=== PATIENT | male | born 1980 | race Caucasian/White ===

== ENCOUNTER 2020-03-28 16:08 | Outpatient (CLI) | payer OTHER, BC ==
--- NOTE | 2020-03-28 16:36 | XRAY Report ---
PROCEDURE: Lumbar Spine 2 View INDICATIONS: STRAIN OF MUSCLE, FASCIA AND TENDON OF LOWER BACK TECHNIQUE: 3 views of the lumbar spine were acquired. COMPARISON: None. FINDINGS: Bones: 5 [id number] vertebrae are present. Minimal levocurvature, possibly positional. Mild low er lumbar degenerative disc disease. Lower lumbar facet arthropathy. No vertebral body compression fr actures. No suspicious bony lesions. Soft tissues: Overlying bowel gas pattern is normal. No suspicious soft tissue calcifications. IMPRESSION: Degenerative change. No acute bony abnormality of the lumbar spine. Reviewed by: Scar Villalba MD on 03/28/2020 4:35 PM PST Approved by: Scar Villalba MD on 03/28/2020 4:35 PM PST Station ID: [id number]
--- NOTE | 2020-03-28 16:37 | XRAY Report ---
PROCEDURE: Hand 3 View RT INDICATIONS: CONTUSION OF R HAND TECHNIQUE: 3 views of the hand(s) acquired. COMPARISON: None FINDINGS: Bones: No fractures or dislocations. No suspicious bony lesions. Soft tissues: No suspicious soft tissue calcifications. IMPRESSION: No evidence acute bony abnormality of the right hand. Reviewed by: Scar Villalba MD on 03/28/2020 4:35 PM [facility] Approved by: Scar Villalba MD on 03/28/2020 4:35 PM [facility] Station ID: [id number]
== END 2020-03-28 23:59 | disposition home or self-care (01) ==
LOC: DI.N 16:08
PROVIDERS: ATTEND Family Medicine
DX: M47.816 Spondylosis without myelopathy or radiculopathy, lumbar region (principal); M51.36 Other intervertebral disc degeneration, lumbar region; S60.221A Contusion of right hand, initial encounter

== ENCOUNTER 2021-09-01 13:47 | Emergency (ER) | payer OTHER ==
[2021-09-01] MEDS ORDERED: DEXAMETHASONE 10 MG/ML VIAL IVP STA (14:48)
[2021-09-01] MEDS ORDERED: diazePAM INJ 5 MG/ML SYRINGE IVP STA (14:48)
[2021-09-01] MEDS ORDERED: HYDROmorphone 1 MG/ML CARPUJECT IVP STA (14:48)
[2021-09-01] MEDS ORDERED: KETOROLAC 30 MG/ML VIAL IVP STA (14:48)
--- NOTE | 2021-09-01 14:49 | ED Physician Documentation ---
PD HPI BACK PAIN - Stated complaint Stated Complaint: BACK PX - Chief complaint Chief Complaint: Back Pain - History obtained from History obtained from: Patient - History of Present Illness Timing - onset: How many weeks ago (1) Timing - duration: Weeks (1) Timing - details: Gradual onset Pain level max: 8 Pain level now: 6 Location: Mid, Lower, Right Quality: Pain, Spasm, Similar to prior episodes Associated symptoms: No: Fever, Weakness, Numbness, Incontinent of urine, Unable to urinate, Hematuria, Incontinent of stool Improves with: Rest Worsened by: Movement Contributing factors: No: Anticoagulated, Cancer, IVDA - Additional information Additional information: Patient is a 41-year-old male who presents to the emergency department complaining of back pain. He states this has been ongoing for the past week. He originally injured it while twisting about a week ago. He complains of pain to the lumbar spine, left side, radiates to the left leg. No loss of bowel or bladder control. Has seen his chiropractor x2 but has not helped. Worse with movement and bending. Better with remaining still. Complains of increased spasm today. Review of Systems Constitutional: denies: Fever Cardiac: denies: Chest pain / pressure Respiratory: denies: Cough GI: denies: Nausea, Vomiting Skin: denies: Rash Musculoskeletal: denies: Neck pain, Back pain Neurologic: denies: Headache PD PAST MEDICAL HISTORY - Past Medical History Past Medical History: No - Past Surgical History Past Surgical History: No - Present Medications Home Medications: Ambulatory Orders Medication Instructions Recorded Confirmed Meloxicam [Mobic] 7.5 mg PO BID PRN #20 tablet 09/01/21 Oxycodone HCl/Acetaminophen 1 - 2 each PO Q6H PRN #14 tablet 09/01/21 [Percocet 5-325 mg Tablet] methocarbamoL [Robaxin] 500 mg PO Q6H PRN #20 tablet 09/01/21 - Allergies Allergies/Adverse Reactions: Allergies Allergy/AdvReac Type Severity Reaction Status Date / Time No Known Drug Allergies Allergy Verified 09/01/21 13:57 - Living Situation Living Situation: reports: With family Living Arrangement: reports: At home - Social History Does the pt have substance abuse?: No PD ED PE NORMAL - Vitals Vital signs reviewed: Yes - General General: Alert and oriented X 3, No acute distress - HEENT HEENT: PERRL, Moist mucous membranes - Neck Neck: Supple, no meningeal sign - Cardiac Cardiac: RRR, Strong equal pulses - Respiratory Respiratory: No respiratory distress, Clear bilaterally - Abdomen Abdomen: Soft, Non tender, Non distended - Back Back: Other (Mild midline tenderness palpation L3-L4. Paraspinal spasm left greater than right.) - Derm Derm: Warm and dry - Extremities Extremities: No edema, No calf tenderness / cord - Neuro Neuro: Alert and oriented X 3, No motor deficit, No sensory deficit, Other (Normal bilateral lower extremity patellar and ankle jerk reflexes. Normal great toe extension bilaterally. no saddle anesthesia) - Psych Psych: Normal mood, Normal affect Results - Vitals Vitals: Vital Signs - 24 hr 09/01/21 09/01/21 13:54 16:42 Temperature 37.3 C Heart Rate 81 64 Respiratory 16 20 Rate Blood Pressure 145/92 H 133/79 H O2 Saturation 96 94 Oxygen O2 Source Room air - Rads (name of study) Lumbar spine x-ray Radiology: Final report received, EMP read contemporaneously, See rad report (No acute abnormality) PD MEDICAL DECISION MAKING - ED course Complexity details: reviewed results, re-evaluated patient, considered differential (No cauda equina, no spinal epidural abscess, no fracture, no aortic dissection or evidence of aneursym rupture), d/w patient ED course: Pain well controlled in the emergency department. Possible disc injury. We will have him follow-up with his doctor for further care. Potential MRI if fails to improve. No evidence of cauda equina, epidural abscess or fracture. Patient feels much better after pain medication here. Patient counseled regarding signs and symptoms for which I believe and urgent re-evaluation would be necessary. Patient with good understanding of and agreement to plan and is comfortable going home at this time This document was made in part using voice recognition software. While efforts are made to proofread this document, sound alike and grammatical errors may occur. Departure - Departure Disposition: 01 Home, Self Care Clinical Impression: Back spasm Condition: Good Instructions: ED Low Back Pain Injury, ED Spasm Back No Trauma Follow-Up: Felicia Pedersen PA-C [Primary Care Provider] - Within 1 week Prescriptions: Meloxicam [Mobic] 7.5 mg PO BID PRN #20 tablet PRN Reason: Pain Oxycodone HCl/Acetaminophen [Percocet 5-325 mg Tablet] 1 - 2 each PO Q6H PRN #14 tablet PRN Reason: pain methocarbamoL [Robaxin] 500 mg PO Q6H PRN #20 tablet PRN Reason: muscle spasm Comments: Continue gentle stretching at home. Please follow-up with your doctor for further care. Your prescriptions were sent to [facility] in [place]. Your x- rays do not show any acute abnormalities today. I am prescribing a short course of narcotic pain medication for you. These are potentially dangerous and addictive medications that should be used carefully. These medications may constipate you. Take an [id number]-tur-yhougpn stool softener (docusate) twice daily with plenty of water while taking these medications. If you go 24 hours without a bowel movement, take srwc-brk-nciigqx miralax, per package instructions. Do not drink or drive while taking these medications. If you received narcotic or sedating medications while in the emergency department, do not drive for 24 hours. Store this medication in a safe, secure place and out of reach of children. It is a violation of federal law to give or sell this medication to another person or to use in a manner other than prescribed. The ED will not refill narcotic prescriptions, including prescriptions lost or stolen. To dispose of unwanted medications: 1. [facility] at [address] in [place] has a medication drop box. They accept prescription medications (in pill form) Thursday through Thursday 9:00 a.m. to 5:00 p.m. 2. The [facility] [employer] accepts prescription medications (in pill form only) for disposal year round. Call for more information. 3. Contact the [facility] for the next [facility] sponsored prescription drug collection event. , [phone], or [phone]; Discharge Date/Time: 09/01/21 16:59
[2021-09-01] MEDS: HYDROmorphone 1 MG/ML CARPUJECT IM STA ×2 (14:54→14:55)
[2021-09-01] MEDS: DEXAMETHASONE 10 MG/ML VIAL IM STA ×2 (14:54→14:56)
[2021-09-01] MEDS: diazePAM INJ 5 MG/ML SYRINGE IM STA ×2 (14:54→14:56)
[2021-09-01] MEDS: KETOROLAC 30 MG/ML VIAL IM STA ×2 (14:54→14:56)
--- NOTE | 2021-09-01 15:58 | XRAY Report ---
PROCEDURE: Lumbar Spine 2 View INDICATIONS: fall, back pain x 1 week TECHNIQUE: 3 views of the lumbar spine were acquired. COMPARISON: None. FINDINGS: Bones: 5 [id number]-rlk-[id number] vertebrae are present. Minimal degenerative changes of the vertebral justin s. Mild disc space narrowing at L5-S1. There is normal bony alignment. No vertebral body compression fractures. No suspicious bony lesions. Soft tissues: Overlying bowel gas pattern is normal. No suspicious soft tissue calcifications. IMPRESSION: 1. No acute abnormality of the lumbar spine. 2. Minimal degenerative changes with mild disc space narrowing at L5-S1. Reviewed by: Guanaco Sandra on 09/01/2021 2:57 PM [facility] Approved by: Guanaco Sandra on 09/01/2021 2:57 PM [facility] Station ID: [id number]
[2021-09-01 16:42] VITALS: BP 133/79
[2021-09-01] MEDS ORDERED: oxyCODONE 5 MG TABLET PO STA (16:48)
== END 2021-09-01 16:59 | disposition home or self-care (01) ==
LOC: EDUNIT# → ED 13:47
DX: M62.830 Muscle spasm of back (principal)
CPT/HCPCS: 72100; 96374; 99284; 99285; A9270; J1170

== ENCOUNTER 2022-09-08 13:11 | Outpatient (CLI) | payer OTHER ==
[2022-09-08 14:26] VITALS: BP 136/90
--- NOTE | 2022-09-08 14:26 | SLEEP CARE CONSULTATION ---
Information from patient questionnaire entered by Rosas Ruelas. I have reviewed and concur with the information entered by Rosas Ruelas. This document represents the service I personally performed and the decisions made by me, Gabo Campoverde MD, [facility]. History of Present Illness Service Date and Time: 09/08/2022 1311 Reason for Visit: New patient Chief Complaint: reports: Other (UPDATE MACHINE) Date of Onset: CHILDHOOD Usual bedtime: 7-10PM Time it takes to fall asleep: DEPENDS ON WORRIES OF THE DAY Snores at night: Yes Observed to quit breathing while asleep: Yes Sleeps alone due to snoring: No Number of times waking at night: 2 Reasons for waking at night: reports: Bathroom Toss, Turn, or Twitch while sleeping: No Recalls having dreams: No Usually gets out of bed at: 4-6AM Feels refreshed in the morning: Yes Morning headache: No Sleepy or fatigued during the day: Yes Ever fallen asleep while driving: No Takes day naps: No Prior sleep studies: Yes Additional HPI information: I had the pleasure of seeing Mr. Melissa today regarding obstructive sleep apnea-hypopnea. As you know, he is a 42 year old gentleman who was diagnosed with the sleep-disordered breathing [place] [facility] [place], [place] in 2009. The AHI was 31.9. He was prescribed a CPAP device set at 11.2 cmH2O. He uses every night and all night. The compliance data show usage in 90 out of the past 90 nights, averaging 7.6 hours a night. The residual AHI is 0.8 and average air leak is 0 L/minute. He wears a Respironics EasyLife nasal mask. He has not gotten any supplies since he moved to the [place] 3 years ago. He finds the treatment very beneficial. His also uses a CPAP. 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 Patient is and lives in [place]. Have you smoked in the past 12 months: No Alcohol use: Yes Alcohol amount and frequency: 2 DRINKS Caffeine use: Yes Caffeine amount and frequency: 2 CUPS DAILY Family History Family history of sleep disordered breathing: Yes Family Hx Sleep Apnea: Mother: Snoring, Father: Sleep apnea - Treated Allergies and Home Medications Known drug allergies: No Drug allergies reviewed: Yes Home medication list reviewed: Yes Allergy and home medication list: Allergies No Known Drug Allergies Allergy (Verified 09/05/22 10:24) Review of Systems Cardiovascular: reports: high blood pressure, leg or foot swelling Respiratory: reports: wheeze, sputum production Gastrointestinal: denies: heartburn, difficulty swallowing, nausea, vomitting, diarrhea, abdominal pain, other Urinary: denies: incontinence, frequency, urgency, impotence, other Neurological: denies: headaches, seizure, head trauma, disorientation, speech dysfunction, gait or balance problems, fainting or unconsciousness, other Psychiatric: denies: Attention Deficit Hyperactivity, anxiety, depression, mood disorder, claustrophobia, other Ear/Nose/Throat: reports: nasal congestion, sinus problems Endocrine: denies: thyroid disease, history of goiter, sluggishness, too hot or cold, excessive thirst, increased appetite, increased urination, unexplained weakness, other Musculoskeletal: reports: joint pain, back pain Immunologic: reports: sneezing Physical Exam Vital signs obtained and entered by: ROSAS Bey MA Blood Pressure: 136/90 Heart Rate: 63 O2 Saturation: 96 Height: 6 ft 1 in Weight: 296 lb 12.8 oz Body Mass Index: 39.1 BMI Classification: Obese Neck circumference: 18.75 Mood/affect: normal HEENT: No craniofacial malformation Nostrils: patent to airflow Turbinates: normal Septum: midline Mouth and throat: narrow oropharynx Soft palate: long Hard palate: normal Uvula: normal Uvula visualization: 25% Mallampati Class III Tongue: normal in size Tonsils: small Chin and jaw: normal size and position Neck: normal w/o lymphadenopathy or thyromegaly Heart: regular rate and rhythm Lungs: clear bilaterally Extremities: no edema or clubbing Neurologic: intact Impression and Plan IMPRESSION: 1. Obstructive Sleep Apnea-Hypopnea Syndrome, severe, as previously diagnosed 13 years ago. Narrow oropharynx and obesity are common predisposing factors for obstructive sleep apnea-hypopnea syndrome. He has excellent CPAP compliance. Because the CPAP is now older than the useful life of 5 years, I will order the patient a new one and make it an autoCPAP set between 8 and 12 cmH2O. Plan: 1. Prescription made for an autoCPAP, heated humidifier, and related supplies through [facility]. 2. Try to lose weight. 3. Return for follow up after one month of using the new CPAP. Counseling Topics: Weight control Prescriptions: Auto CPAP Follow up with Sleep Care in: 1-2 months Visit Type: In Office Time Spent with Patient (minutes): 15 Provider Statement: I spent 100% of the Face to Face Visit with the patient with greater than 50% spent counseling the patient and coordination of care.
== END 2022-09-08 13:12 | disposition home or self-care (01) ==
LOC: SC 13:11
PROVIDERS: ATTEND Internal Medicine Pulmonary Disease
DX: G47.33 Obstructive sleep apnea (adult) (pediatric) (principal); E66.9 Obesity, unspecified; Z68.39 Body mass index [BMI] 39.0-39.9, adult
CPT/HCPCS: 99202; 99212